=== PATIENT | female | born 1995 | race Hispanic/Latino ===

== ENCOUNTER 2022-04-08 09:06 | Observation (INO) | payer OTHER ==
[~2022-04-08] VITALS: Ht 175.3 cm; Wt 68.0 kg
[2022-04-08 09:58] LABS: APPEARANCE,URINE CLEAR (CLEAR); BASOPHILS % (AUTO) 0.3 % (0.0-5.0); BILIRUBIN,URINE NEGATIVE (NEGATIVE); COLOR,URINE LIGHT-YELLOW (YELLOW); GLUCOSE, URINE (UA) NEGATIVE (NEGATIVE); HEMATOCRIT 41.1 % (36-48); KETONES,URINE NEGATIVE (NEGATIVE); LEUKOCYTE ESTERASE ,URINE NEGATIVE Leu/uL (NEGATIVE); MEAN CORPUSCULAR HEMOGLOBIN 29.8 pg (27.0-33.0); MEAN CORPUSCULAR HGB CONC 32.4 g/dL (32.0-36.0); MEAN CORPUSCULAR VOLUME 92.2 fL (79-99); MONOCYTES % (AUTO) 4.4 % (3.0-13.0); NITRATE,URINE NEGATIVE (NEGATIVE); OCCULT BLOOD,URINE MODERATE (NEGATIVE); PLATELET COUNT (AUTO) 180 K/uL (130-400); PROTEIN,URINE NEGATIVE (NEGATIVE); RED BLOOD CELL COUNT(AUTO) 4.46 MIL/uL (4.00-5.50); RED CELL DISTRIBUTION WIDTH 12.4 % (11.0-15.5); UROBILINOGEN,URINE 0.2 mg/dL (0.2-1.0); WHITE BLOOD COUNT (AUTO) 11.5 K/uL (4.8-10.8)
[2022-04-08] MEDS ORDERED: LACTATED RINGERS 1000ML 1,000 ML IV ONE (10:00)
[2022-04-08 10:05] LABS: HCG,QUALITATIVE URINE NEGATIVE (NEGATIVE)
[2022-04-08 10:09] LABS: MUCUS,URINE RARE LPF (None Seen); SQUAMOUS EPITHELIAL CELL,UR RARE /HPF (0-2)
[2022-04-08 10:22] LABS: ALBUMIN 3.8 g/dL (3.5-5.0); CREATININE 0.8 mg/dL (0.5-1.5); POTASSIUM 4.4 mmol/L (3.5-5.1); TOTAL PROTEIN, SERUM 8.2 g/dL (6.0-8.3)
[2022-04-08] MEDS ORDERED: MAG/ALUM/SIMETH 30 ML UDCUP PO ONE (11:00)
[2022-04-08] MEDS ORDERED: LIDOCAINE HCL 2% VISCOUS 15 ML UDCUP PO ONE (11:00)
[2022-04-08] MEDS ORDERED: MORPHINE 2 MG SYG ONE (15:13)
[2022-04-08] MEDS ORDERED: ZOSYN 3.375GM +NS 50ML IV STA (15:26)
[2022-04-08] MEDS ORDERED: MORPHINE 2 MG SYG IVP ONE (15:30)
[2022-04-08 18:25] VITALS: BP 121/75
[2022-04-08 19:39] VITALS: BP 123/68
[2022-04-08] MEDS ORDERED: ACETAMINOPHEN 325 MG TAB PO PRN ×2 (20:00)
[2022-04-08] MEDS ORDERED: DiphenhydrAMINE HCL 50 MG/ML VIAL IM PRN (20:00)
[2022-04-08] MEDS ORDERED: ONDANSETRON 4MG INJ IVP PRN (20:00)
[2022-04-08] MEDS ORDERED: MORPHINE 2 MG SYG IVP PRN (20:00)
[2022-04-08] MEDS ORDERED: PANTOPRAZOLE 40 MG/VIAL IVP PRN (20:00)
[2022-04-08] MEDS: IBUPROFEN 600 MG TABLET PO SCH (20:47)
[2022-04-08] MEDS: DEXTROSE 5%-LACTATED RINGERS 1,000 ML IV SCH (20:50)
[2022-04-08 23:28] VITALS: BP 108/64
[2022-04-09] MEDS: IBUPROFEN 600 MG TABLET PO SCH ×4 (03:02→20:06)
[2022-04-09 03:14] VITALS: BP 101/65
[2022-04-09] MEDS: DEXTROSE 5%-LACTATED RINGERS 1,000 ML IV SCH ×3 (04:07→20:11)
[2022-04-09 05:46] LABS: HEMATOCRIT 35.3 % (36-48); MEAN CORPUSCULAR HEMOGLOBIN 30.2 pg (27.0-33.0); MEAN CORPUSCULAR HGB CONC 32.3 g/dL (32.0-36.0); MEAN CORPUSCULAR VOLUME 93.4 fL (79-99); RED BLOOD CELL COUNT(AUTO) 3.78 MIL/uL (4.00-5.50); RED CELL DISTRIBUTION WIDTH 12.5 % (11.0-15.5); WHITE BLOOD COUNT (AUTO) 11.2 K/uL (4.8-10.8)
[2022-04-09 05:55] LABS: CREATININE 0.7 mg/dL (0.5-1.5); POTASSIUM 3.6 mmol/L (3.5-5.1)
[2022-04-09 07:34] VITALS: BP 114/60
[2022-04-09 11:49] VITALS: BP 108/58
[2022-04-09 15:30] VITALS: BP 107/59
[2022-04-09 20:09] VITALS: BP 104/54
[2022-04-09 23:28] VITALS: BP 96/54
[2022-04-10] MEDS: IBUPROFEN 600 MG TABLET PO SCH ×2 (03:10→08:41)
[2022-04-10 03:13] VITALS: BP 95/50
[2022-04-10] MEDS: DEXTROSE 5%-LACTATED RINGERS 1,000 ML IV SCH (04:17)
[2022-04-10 08:00] VITALS: BP 99/60
[2022-04-10 11:55] VITALS: BP 113/72
== END 2022-04-10 12:20 | disposition home or self-care (01) ==
LOC: EDH 09:06 → INTOOBSV 17:31 → EDHIP 17:31 → OBSVTOIN 17:31 → WSH 18:22
PROVIDERS: ADMIT Internal Medicine; ATTEND Internal Medicine
DX: N83.202 Unspecified ovarian cyst, left side (principal); N83.201 Unspecified ovarian cyst, right side; M25.511 Pain in right shoulder; R10.30 Lower abdominal pain, unspecified
CPT/HCPCS: 96361 ×5; 96365; 96366; 96375; 99285; 80053; 84702; 83690; 85025; 81001; 81025; 36415 ×2; 74176; 76857; 80048; 85027; J2543; G0378 ×36; J7120 ×2